=== PATIENT | female | born 1990 | race Asian ===

== ENCOUNTER 2016-11-17 19:05 | Inpatient (IN) | payer BC ==
[2016-11-17] MEDS: ELECTROLYTE-148 SOLN 1,000 ML IV SCH (21:30)
--- NOTE | 2016-11-17 21:53 | HP ---
Past Medical History - Admission Chief Complaint: 26 y/o with [facility] at 39 weeks here with complaints of painful contractions. History of Present Illness: 26 y/o with [facility] at 39 weeks here with complaints of labor pains since early this afternoon. Pt states contractions were every 15 and then they became close together, every 5-7 minutes. No LOF or VB. +FM. Patient was initially scheduled for on 11/22/16. uncomplicated. Patient with EDC 11/24/16 by 7 week ultrasound. HIV negative. GBS negative. Rubella Immune, HepBSag negative. Pt with h/o prior c section for malpresentation. 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 Weeks Gestation by Dates: 39.0 ...EDC by Dates: 11/24/16 ...EDC by Sono: 11/29/16 Infectious Disease: No: HIV, MRSA, STD's Psych: No: Anxiety, Bipolar, Depression Endocrine: No: Diabetes Mellitus, Hyperthyroidism, Hypothyroidism - Past Surgical History Past Surgical History: Yes: Hx Myomectomy: No Hx Transabdominal Cerclage: No - Smoking History Smoking history: Never smoked - Alcohol/Substance Use Hx Alcohol Use: No History of Substance Use: reports: None - Social History Usual Living Arrangement: Yes: With Spouse ADL: Independent History of Recent Travel: No Home Medications - Allergies Allergies/Adverse Reactions: Allergies Allergy/AdvReac Type Severity Reaction Status Date / Time No Known Allergies Allergy Verified 11/17/16 21:36 - Home Medications Home Medications: Ambulatory Orders NK [No Known Home Medication] 10/09/14 Review of Systems - Review of Systems Constitutional: reports: No Symptoms Eyes: reports: No Symptoms HENT: reports: No Symptoms Neck: reports: No Symptoms Cardiovascular: reports: No Symptoms Respiratory: reports: No Symptoms Gastrointestinal: reports: No Symptoms Genitourinary: reports: No Symptoms Breasts: reports: No Symptoms Reported Musculoskeletal: reports: No Symptoms Integumentary: reports: No Symptoms Neurological: reports: No Symptoms Endocrine: reports: No Symptoms Hematology/Lymphatic: reports: No Symptoms Psychiatric: reports: No Symptoms Physical Exam - Maternity Vital Signs: Vital Signs Temperature 98.2 F 11/17/16 19:15 Pulse Rate 74 11/17/16 19:15 Respiratory Rate 20 11/17/16 19:15 Blood Pressure 122/72 11/17/16 19:15 O2 Sat by Pulse Oximetry (%) Constitutional: Yes: Well Nourished, No Distress, Calm Eyes: Yes: Conjunctiva Clear, EOM Intact HENT: Yes: Atraumatic, Normocephalic Neck: Yes: Supple, Trachea Midline Cardiovascular: Yes: Regular Rate and Rhythm - Abdominal Exam/OB Fundal Height: 40 Number of Fetuses: Single Presentation: Vertex Contractions: Yes Regularity: Regular Intensity: Moderate Monitor Mode: External Heart Rate (range): 145 Accelerations: Uniform Decelerations: None - Vaginal Exam/OB Vaginal Bleediing: No Dilatation (cm): 0 Effacement (%): 0 Amniotic Membrane Status: Intact Presentation: Vertex/Position Station: -3 (per nursing staff) - Physical Exam Psychiatric: Yes: Alert, Oriented Hemorrhage Risk Assessment - Risk Factors Medium Risk Factors: Yes: Prior , uterine surgery,or multiple laparotomies High Risk Factors: Yes: None Risk Score: 1 Risk Level: Medium Risk Problem List - Problems (1) Status post delivery Code(s): Z98.89 - OTHER SPECIFIED POSTPROCEDURAL STATES * DO NOT USE * (2) Uterine contractions during Code(s): O62.2 - OTHER UTERINE INERTIA Assessment/Plan 26 y/o with h/o prior c section, painful contractions, likely early labor, for repeat c section - AFVSS - FHTS cat 1 - prior c section/contractions, will plan for repeat c section. Admit to L&D, labs drawn, roach catheter, NPO, SCDs. - R/B/A to repeat c section discussed, consents signed - Anesthesia, nursery and nursing aware
[2016-11-17 22:17] LABS: BASOPHIL 0.1 % (0-2.0); EOSINOPHIL 0.4 % (0-4.5); MCH 30.8 pg (25.7-33.7); MCHC 34.2 g/dl (32.0-36.0); MEAN CELL VOLUME 90.1 fl (80-96); MEAN PLT VOLUME 8.9 fl (7.5-11.1); NEUTROPHILS 65.5 % (42.8-82.8); PLATELET COUNT 203 K/MM3 (134-434); RDW 14.5 % (11.6-15.6); WHITE BLOOD COUNT 10.6 K/mm3 (4.0-10.0)
[2016-11-17] MEDS ORDERED: DEXTROSE 5%-LACTATED RINGERS 1,000 ML IV SCH ×2 (22:29→22:30)
[2016-11-17 22:34] VITALS: BMI 28.5
[2016-11-17 22:37] LABS: ACTIVATED PTT 25.9 SECONDS (26.9-34.4)
[2016-11-17 22:58] LABS: ANION GAP 11 (8-16); CO2 21 mmol/L (21-32); CREATININE 0.4 mg/dL (0.55-1.02); GLUCOSE,RANDOM 96 mg/dL (74-106)
[2016-11-18] MEDS ORDERED: morphine SULFATE/Preservative Free 0.5 MG/ML (1cc Syringe) SPIN ONE (00:18)
[2016-11-18] MEDS ORDERED: ONDANSETRON 4 MG/2 ML VIAL IVPB PRN (00:18)
[2016-11-18] MEDS ORDERED: IBUPROFEN 800 MG/8 ML IJ IVPB PRN (00:41)
[2016-11-18] MEDS ORDERED: oxyCODONE HCL 5 MG TABLET PO PRN ×2 (00:41)
[2016-11-18] MEDS ORDERED: SENNOSIDES/DOCUSATE COMBO (SENNA PLUS) TABLET (UD) PO PRN (00:41)
[2016-11-18] MEDS ORDERED: METHYLERGONOVINE MALEATE 0.2 MG/1 ML AMP IM PRN (00:41)
--- NOTE | 2016-11-18 00:47 | OP ---
Operative Note - Note: Operative Date: 11/18/16 Pre-Operative Diagnosis: prior section, in labor, desire for permanent sterilization Operation: repeat delivery, bilateral salpingectomy Surgeon: Radha Byrd Mail Teller: Sara Queen Anesthesiologist/OIL TRANSPORT DRIVER: Shade Guillen Anesthesia: Spinal Specimens Removed: placenta, bilateral fallopian tubes Estimated Blood Loss (mls): 600 Operative Report Dictated: Yes
[2016-11-18] MEDS: OXYTOCIN 20 UNITS in 0.9% NS 1,000 ML IV SCH ×2 (01:15→06:43)
--- NOTE | 2016-11-18 09:31 | OP ---
DATE OF OPERATION: 11/18/2016 PREOPERATIVE DIAGNOSIS: Prior section, at 39 weeks, in labor, desire for sterilization POSTOPERATIVE DIAGNOSIS: Prior section, at 39 weeks, in labor, desire for sterilization PROCEDURE: Repeat low transverse section, bilateral salpingectomy SURGEON: Radha Tanner DO CURVE CLEANER: Sara Queen MD ESTIMATED BLOOD LOSS: 600 mL SPECIMENS REMOVED: Include placenta. COMPLICATIONS: None. ANESTHESIA: Spinal by Shade Guillen MD. COUNTS: Sponge, needle, and instrument count correct. DISPOSITION: Stable to recovery room. BRIEF HISTORY AND DESCRIPTION OF PROCEDURE: Patient is a 26-year-old G2, P 1-0- 0-1 female who arrived to labor and delivery on November 17, 2016, with complaints of painful contractions. The patient was hydrated with IV fluids, and the contractions continued to be closer together and more painful. At this point, the patient was counseled on her options and elected to undergo a repeat section at this time. The patient also desires sterilization and expressed desire for tubal ligation/salingectomy procedure. The consents for the procedure were signed. The patient was then taken back to the operating room. She was given spinal anesthesia by Dr. Shade Guillen and then prepped and draped in the dorsal supine position. A Quevedo catheter was placed under sterile conditions. A hard timeout was performed. A Pfannenstiel skin incision was created in the skin using a scalpel and carried to the underlying layer of rectus fascia with the Bovie. The fascia was incised on either side of midline with the Bovie, and the fascial incision was carried in a superolateral direction sharply. The fascia was tented upward and dissected off the underlying layer of rectus muscle, and then the musculature was then tented upward. The midline of the musculature was sharply with scalpel at this time. After entrance into the peritoneal cavity, the musculature was carefully dissected laterally and the peritoneum was carefully dissected laterally to allow for adequate room for delivery. The bladder blade was then inserted. A transverse incision was created on the uterus with a scalpel, and this incision was carried in a superolateral direction bluntly. The infant was then delivered from the JOYCE position without difficulty. The shoulders and remainder of the delivered with ease. The cord was clamped twice and cut in between. The infant was taken over to the warmer to be assessed by the nursery staff, where the Apgars were 9 and 9. The placenta was then delivered manually. The uterus was exteriorized from the abdomen, inspected and cleared of all amniotic membrane and debris. The hysterotomy was reapproximated in 2 layers in a running locked fashion using Vicryl and then Biosyn suture. The bilateral tubes and ovaries were noted to be normal. The left tube was then elevated and undermined with a Thea clamp. The tube was tied off with a chromic suture as well as a free tie and excised and sent to Pathology for permanent evaluation. The same was repeated on the left fallopian tube. Both tubal sites were noted to be hemostatic. The posterior cul-de-sac was then suctioned. The uterus was placed back into the abdomen. Again, tubal sites were inspected and noted to be hemostatic. Bilateral gutters were inspected and cleared of all debris. The hysterotomy was again inspected and noted to be hemostatic. The peritoneum was then reapproximated using chromic suture. The musculature was reapproximated using Biosyn suture in 2 interrupted sutures. The fascia was reapproximated using 1 Vicryl in a running fashion. Subcutaneous tissue was irrigated and reapproximated using Vicryl suture in a running fashion, and the skin was reapproximated using 3-0 Vicryl suture in a running fashion subcuticularly. Steri-Strips were applied. Sponge, needle, and instrument counts were reported to be correct. The patient tolerated the procedure well, recovering in stable condition in the recovery room at the time of this dictation. RADHA TANNER DO /[id number] MTDD
[2016-11-18] MEDS ORDERED: PRENATAL VITAMINS W/ FOLIC ACID TABLET (FP) PO SCH (10:00)
[2016-11-18] MEDS: PRENATAL VITAMINS W/ FOLIC ACID TABLET (FP) PO SCH (11:01)
[2016-11-18] MEDS: FERROUS SO4 325 MG TABLET (FP) PO SCH ×2 (11:01→23:07)
[2016-11-18] MEDS: ENOXAPARIN NA (PORCINE) 40 MG/0.4 ML DISP.SYRIN SQ SCH (11:04)
[2016-11-18] MEDS: ELECTROLYTE-148 SOLN 1,000 ML IV SCH (21:32)
[2016-11-18] MEDS: IBUPROFEN 600 MG TABLET (FP) PO PRN (22:01)
[2016-11-18] MEDS: SIMETHICONE 80 MG TAB.CHEW (FP) PO PRN (22:01)
[2016-11-18] MEDS: ACETAMINOPHEN 325 MG TABLET (FP) PO PRN (22:05)
[2016-11-19] MEDS ORDERED: BISACODYL 10 MG SUPP.RECT RC PRN (00:41)
[2016-11-19] MEDS: SIMETHICONE 80 MG TAB.CHEW (FP) PO PRN ×4 (05:17→22:08)
[2016-11-19] MEDS: IBUPROFEN 600 MG TABLET (FP) PO PRN ×4 (05:17→22:09)
[2016-11-19] MEDS: ACETAMINOPHEN 325 MG TABLET (FP) PO PRN ×4 (05:18→22:08)
[2016-11-19 08:27] LABS: BASOPHIL 0.2 % (0-2.0); EOSINOPHIL 0.8 % (0-4.5); MCH 31.6 pg (25.7-33.7); MCHC 35.3 g/dl (32.0-36.0); MEAN CELL VOLUME 89.6 fl (80-96); MEAN PLT VOLUME 8.7 fl (7.5-11.1); NEUTROPHILS 66.6 % (42.8-82.8); PLATELET COUNT 156 K/MM3 (134-434); RDW 14.4 % (11.6-15.6); WHITE BLOOD COUNT 9.8 K/mm3 (4.0-10.0)
--- NOTE | 2016-11-19 09:03 | PN ---
Post Progress Note - Subjective Subjective: Pt seen/evaluated. Doing well. Pain controlled. Tolerating clear diet. Ambulating and voiding. VB minimal. Denies CP/SOB/F/C/SYED. Type of Delivery: Repeat C/S Vital Signs: Vital Signs Temperature 98.2 F 11/18/16 22:00 Pulse Rate 73 11/18/16 22:00 Respiratory Rate 18 11/18/16 22:00 Blood Pressure 104/66 11/18/16 22:00 O2 Sat by Pulse Oximetry (%) 100 11/18/16 01:40 Uterus: Yes: Fundus below umbilicus Incision: Yes: Dressing dry and intact Abdomen/GI: Yes: Abdomen soft, Tender (appropriately TTP), Tolerating PO. No: Abdominal Distention Lochia: Yes: Rubra Lochia, amount: Small Extremities: Yes: Calves non-tender. No: Edema Perineum: Yes: Intact Activity: Ambulating - Labs Labs: CBC WBC 9.8 K/mm3 (4.0-10.0) 11/19/16 07:50 RBC 3.34 M/mm3 (3.60-5.2) L 11/19/16 07:50 Hgb 10.6 GM/dL (10.7-15.3) L D 11/19/16 07:50 Hct 30.0 % (32.4-45.2) L D 11/19/16 07:50 MCV 89.6 fl (80-96) 11/19/16 07:50 MCHC 35.3 g/dl (32.0-36.0) 11/19/16 07:50 RDW 14.4 % (11.6-15.6) 11/19/16 07:50 Plt Count 156 K/MM3 (134-434) D 11/19/16 07:50 MPV 8.7 fl (7.5-11.1) 11/19/16 07:50 Neutrophils % 66.6 % (42.8-82.8) 11/19/16 07:50 Lymphocytes % 25.8 % (8-40) 11/19/16 07:50 Monocytes % 6.6 % (3.8-10.2) 11/19/16 07:50 Eosinophils % 0.8 % (0-4.5) D 11/19/16 07:50 Basophils % 0.2 % (0-2.0) 11/19/16 07:50 Problem List - Problems (1) Status post delivery Code(s): Z98.89 - OTHER SPECIFIED POSTPROCEDURAL STATES * DO NOT USE * (2) Uterine contractions during Code(s): O62.2 - OTHER UTERINE INERTIA Assessment/Plan 26 y/o POD#1 s/p repeat delivery - AFVSS - Hgb 10.6 post op, pt stable and doing well - advance diet as tolerated - regular diet, PO pain meds - routine post op care
[2016-11-19] MEDS: FERROUS SO4 325 MG TABLET (FP) PO SCH ×2 (09:36→22:08)
[2016-11-19] MEDS: ENOXAPARIN NA (PORCINE) 40 MG/0.4 ML DISP.SYRIN SQ SCH (09:37)
[2016-11-19] MEDS: PRENATAL VITAMINS W/ FOLIC ACID TABLET (FP) PO SCH (09:37)
[2016-11-19] MEDS ORDERED: DIPHTH,PERTUSS(ACELL),TET 0.5 ML DISP.SYRIN IM ONE (10:00)
--- NOTE | 2016-11-19 10:03 | PN ---
Progress Note (short form) - Note Progress Note: POD #1 - s/p repeat /BTL under spinal anesthesia with duramorph. Pt. doing well, sitting up comfortably in bed holding baby. No complaints. Good pain control. No apparent anesthetic complications noted. Continue current care.
[2016-11-20] MEDS: IBUPROFEN 600 MG TABLET (FP) PO PRN ×2 (08:27→16:54)
[2016-11-20] MEDS: ACETAMINOPHEN 325 MG TABLET (FP) PO PRN ×2 (08:27→16:53)
[2016-11-20] MEDS: SIMETHICONE 80 MG TAB.CHEW (FP) PO PRN ×2 (08:28→16:54)
--- NOTE | 2016-11-20 08:37 | PN ---
Post Progress Note - Subjective Subjective: Patient seen and evaluated, doing well. Post Day: 2 Type of Delivery: Repeat C/S Vital Signs: Vital Signs Temperature 98.1 F 11/19/16 21:47 Pulse Rate 77 11/19/16 21:47 Respiratory Rate 20 11/19/16 21:47 Blood Pressure 124/73 11/19/16 21:47 O2 Sat by Pulse Oximetry (%) 100 11/18/16 01:40 Breast Exam: Yes: Soft Uterus: Yes: Fundus Firm Incision: Yes: Dressing dry and intact Abdomen/GI: Yes: Abdomen soft, Tolerating PO Lochia: Yes: Rubra Lochia, amount: Small Extremities: Yes: Calves non-tender Perineum: Yes: Intact Activity: Ambulating - Labs Labs: CBC WBC 9.8 K/mm3 (4.0-10.0) 11/19/16 07:50 RBC 3.34 M/mm3 (3.60-5.2) L 11/19/16 07:50 Hgb 10.6 GM/dL (10.7-15.3) L D 11/19/16 07:50 Hct 30.0 % (32.4-45.2) L D 11/19/16 07:50 MCV 89.6 fl (80-96) 11/19/16 07:50 MCHC 35.3 g/dl (32.0-36.0) 11/19/16 07:50 RDW 14.4 % (11.6-15.6) 11/19/16 07:50 Plt Count 156 K/MM3 (134-434) D 11/19/16 07:50 MPV 8.7 fl (7.5-11.1) 11/19/16 07:50 Neutrophils % 66.6 % (42.8-82.8) 11/19/16 07:50 Lymphocytes % 25.8 % (8-40) 11/19/16 07:50 Monocytes % 6.6 % (3.8-10.2) 11/19/16 07:50 Eosinophils % 0.8 % (0-4.5) D 11/19/16 07:50 Basophils % 0.2 % (0-2.0) 11/19/16 07:50 Assessment/Plan Status post repeat Continue ambulation Analgesia as needed Continue routine Post op care
[2016-11-20] MEDS: PRENATAL VITAMINS W/ FOLIC ACID TABLET (FP) PO SCH (10:22)
[2016-11-20] MEDS: FERROUS SO4 325 MG TABLET (FP) PO SCH ×2 (10:22→21:24)
[2016-11-20] MEDS: ENOXAPARIN NA (PORCINE) 40 MG/0.4 ML DISP.SYRIN SQ SCH (10:23)
[2016-11-21] MEDS: ACETAMINOPHEN 325 MG TABLET (FP) PO PRN (04:38)
[2016-11-21] MEDS: SIMETHICONE 80 MG TAB.CHEW (FP) PO PRN (04:38)
[2016-11-21] MEDS: IBUPROFEN 600 MG TABLET (FP) PO PRN (04:38)
--- NOTE | 2016-11-21 08:55 | DS ---
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 Vital Signs: Vital Signs Temperature 98.1 F 11/20/16 21:43 Pulse Rate 76 11/20/16 21:43 Respiratory Rate 20 11/20/16 21:43 Blood Pressure 123/82 11/20/16 21:43 O2 Sat by Pulse Oximetry (%) 100 11/18/16 01:40 Labs: CBC, BMP 11/19/16 07:50 11/17/16 22:00 Delivery - Delivery Section: Repeat, Low Flap Transverse Type of Anesthesia: Spinal Episiotomy/Laceration: None EBL (cc): 600 Delivery, Single - Stages of Labor Date 1st Stage Initiatied: 11/17/16 Time 1st Stage Initiated: 16:00 Date of Delivery: 11/18/16 Time of Delivery: 00:01 Time Placenta Delivered: 00:03 Placenta: Yes: Manual 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 You may walk unlimited patrick of and climb stairs. You may resume driving the car when you feel safe and comfortable behind the wheel. No sexual activity as instructed. Wound care If you have a bandage, leave it on, and keep dry for 48-72 hours. After that time discard the outer bandage. If they are tapes on the skin under the out of bandage leave them in place. They will peel off in the next 7 to 10 days. Do Not Peel them off. You may shower the day after surgery. If there are tapes present on the skin, you may shower over them. Diet There are no dietary restrictions. Eat healthy, high-fiber foods. Drink 6 to 8 glasses of liquid each day. This will assist in keeping your bowels are regular. Pain management You may take Tylenol or acetaminophen or Ibuprofen (for example, Motrin, Advil etc.) from my pain prescription medication is ordered should be taken as prescribed for moderate to severe pain. Call MD for any of the following: Severe pain not relieved by medication Fever of 101 or higher Excessive bleeding or drainage on dressing Inability to urinate Disposition: HOME - Home Medications Comprehensive Discharge Medication List: Ambulatory Orders Tablet 1 tab PO DAILY 11/17/16
[2016-11-21] MEDS: ENOXAPARIN NA (PORCINE) 40 MG/0.4 ML DISP.SYRIN SQ SCH (09:12)
[2016-11-21] MEDS: PRENATAL VITAMINS W/ FOLIC ACID TABLET (FP) PO SCH (09:12)
[2016-11-21] MEDS: FERROUS SO4 325 MG TABLET (FP) PO SCH (09:12)
[2016-11-21 09:30] LABS: BASOPHIL 0.2 % (0-2.0); EOSINOPHIL 2.8 % (0-4.5); MCH 31.2 pg (25.7-33.7); MCHC 34.5 g/dl (32.0-36.0); MEAN CELL VOLUME 90.5 fl (80-96); MEAN PLT VOLUME 8.8 fl (7.5-11.1); NEUTROPHILS 72.8 % (42.8-82.8); PLATELET COUNT 190 K/MM3 (134-434); RDW 14.3 % (11.6-15.6)
[2016-11-21 09:50] VITALS: BP 121/73; PULSE 79; TEMP 98.3
--- NOTE | 2016-11-22 14:16 | PATH ---
Surgical Pathology Report Patient Name: RICCARDO BROWNE [facility]. Rec. 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 Specimen(s) Received A: PLACENTA B: RIGHT FALLOPIAN TUBE C: LEFT FALLOPIAN TUBE Clinical History , 39 weeks gestation, previous c/section 09/2013 Repeat c/section, BTL Final Diagnosis A. PLACENTA, DELIVERY: FOCALLY DISRUPTED THIRD TRIMESTER PLACENTA WITH MODERATE PREVILLOUS, PERIVILLOUS, AND PRECHORIONIC FIBRIN DEPOSITION, THREE VESSEL UMBILICAL CORD, AND PLACENTAL MEMBRANES WITH FOCAL AMNION HYPERPLASIA. B. FALLOPIAN TUBE, RIGHT, LIGATION: FIMBRIATED PORTION OF FALLOPIAN TUBE WITH COMPLETE CROSS SECTION. C. FALLOPIAN TUBE, LEFT, LIGATION: FIMBRIATED PORTION OF FALLOPIAN TUBE WITH COMPLETE CROSS SECTION. Electronically Signed Roni Chamberlain M.D. Gross Description A. The specimen is received fresh, labeled "placenta" and is a 450 gram, 21.0 x 12.5 x 2.5 cm. placenta with attached membranes and umbilical cord. The attached membranes are gutierrez, focally thickened and insert marginally. The umbilical cord measures 43 cm in length and averages 1 cm in diameter. The cord inserts eccentrically, 4.5 cm to the nearest margin. No true knots or strictures are identified. Cut surface of the umbilical cord reveals 3 vessels. The surface is bailey-blue with fibrin deposition and appropriate caliber vessels. The maternal surface is red-brown with focal defects. Sectioning reveals red-brown, spongy parenchyma. No focal lesions are identified. Rn Gastroenterology sections are submitted in three cassettes as follows: 1- membrane rolls and umbilical cord; 2-3- full thickness sections of placenta. B. Received in formalin labeled "right tube" is a 3 cm in length fimbriated portion of fallopian tube. The outer surface is gutierrez-flannery and smooth. Sectioning reveals an pinpoint lumen. Rn Gastroenterology sections are submitted in 2 cassettes as follows: 1-fimbria; 2-cross sections of fallopian tube. C. Received in formalin labeled "left tube" is a 2.8 cm in length fimbriated portion of fallopian tube. The outer surface is gutierrez-flannery and smooth. Sectioning reveals an pinpoint lumen. Rn Gastroenterology sections are submitted in 2 cassettes as follows: 1-fimbria; 2-cross sections of fallopian tube. [facility]
== END 2016-11-21 14:40 | disposition home or self-care (01) | DRG 766 ==
LOC: JDEL 19:05 → JLDR 21:30 → J3W 11-18 12:15
PROVIDERS: ADMIT Obstetrics & Gynecology; ATTEND Obstetrics & Gynecology
PROC: 10D00Z1 Extraction of Products of Conception, Low, Open Approach (ICD-10-PCS; principal; 2016-11-18)
PROC: 0UL70ZZ Occlusion of Bilateral Fallopian Tubes, Open Approach (ICD-10-PCS; 2016-11-18)
DX: O34.211 Maternal care for low transverse scar from previous cesarean delivery (principal); Z30.2 Encounter for sterilization; Z3A.39 39 weeks gestation of pregnancy; Z37.0 Single live birth
CPT/HCPCS: 36415; 59025; 80048; 85025; 85610; 85730; 86593; 86850; 86900; 86901; 88302-TC; 88307-TC; 90715